=== PATIENT | male | born 1950 | race Hispanic/Latino ===

== ENCOUNTER 2021-12-20 10:52 | Outpatient (CLI) | payer MEDICARE | END 2021-12-20 10:53 | disposition home or self-care (01) | LOC: CSHRAD 10:52 | PROVIDERS: ATTEND Internal Medicine Hematology & Oncology | DX: I49.9 Cardiac arrhythmia, unspecified (principal) | CPT/HCPCS: 93005; 93010 ==

== ENCOUNTER → 2022-08-28 | Day surgery (SDC) | payer MEDICARE ==
[2022-08-28 09:31] LABS: INR-International Normal Ratio 0.9; Prothrombin Time 10.2 sec (9.5-12.1)
[2022-08-28 10:55] VITALS: BP 138/70; TEMP 97.1
== END ==
LOC: CSHCT 08:30
PROVIDERS: ATTEND Internal Medicine Hematology & Oncology
PROC: 07DR3ZZ Extraction of Iliac Bone Marrow, Percutaneous Approach (ICD-10-PCS; principal; 2022-08-28)
DX: C90.00 Multiple myeloma not having achieved remission (principal); C79.51 Secondary malignant neoplasm of bone
CPT/HCPCS: 38222; 85097; 85610; 88184; 88185; 88237; 88264; 88280; 88305; 88311; 88341; 88342; 88365